=== PATIENT | male | born 1970 | race Two or more races ===

== ENCOUNTER 2018-04-13 09:51 | Emergency (ER) | payer SELFPAY ==
[~2018-04-13] VITALS: Ht 165.1 cm; Wt 68.0 kg
[2018-04-13 09:51] VITALS: BP 0/0
[2018-04-13] MEDS ORDERED: AMIODARONE HCL (50 MG/ ML) 3 ML VIAL IV ONE (09:52)
[2018-04-13] MEDS ORDERED: EPINEPHrine HCL 1 MG/10 ML SYRG IV ONE (09:52)
[2018-04-13] MEDS ORDERED: CALCIUM CHLOR(10%) 100MG/ML 10ML SYRINGE IV ONE (09:52)
[2018-04-13] MEDS ORDERED: SODIUM BICARBONATE 8.4% INJ 50ML SYRINGE IV ONE (09:52)
[2018-04-13] MEDS ORDERED: SODIUM BICARBONATE 8.4% INJ 50ML SYRINGE ONE ×2 (09:59→10:16)
[2018-04-13] MEDS: EPINEPHrine HCL 250 ML IV SCH ×2 (10:02→10:12)
[2018-04-13] MEDS ORDERED: EPINEPHrine HCL 1 MG/10 ML SYRG ONE ×2 (10:14→10:15)
== END 2018-04-13 16:24 | disposition expired ==
LOC: EDAGE 09:51 → EDBD 09:51 → ER 09:51
DX: I46.9 Cardiac arrest, cause unspecified (principal)
CPT/HCPCS: 31500; 92950; 99291; J0171; J0282